=== PATIENT | male | born 1935 | race Caucasian/White ===

== ENCOUNTER → 2016-11-17 | Outpatient (CLI) | payer OTHER ==
[2016-11-17 14:00] LABS: ANION GAP 13 MEQ/L (8-16); BLOOD UREA NITROGEN 18 MG/DL (7-18); CALCIUM LEVEL 8.8 MG/DL (8.8-10.2); CARBON DIOXIDE LEVEL 25 MEQ/L (21-32); CHLORIDE LEVEL 101 MEQ/L (98-107); CREATININE FOR GFR 1.03 MG/DL (0.70-1.30); GLOMERULAR FILTRATION RATE > 60.0 (>35); GLUCOSE, FASTING 86 MG/DL (83-110); POTASSIUM SERUM 4.5 MEQ/L (3.5-5.1); SODIUM LEVEL 139 MEQ/L (136-145)
== END ==
LOC: M SMT 08:54
PROVIDERS: ATTEND Nurse Practitioner Women's Health
DX: R31.29 Other microscopic hematuria (principal); Z85.46 Personal history of malignant neoplasm of prostate
CPT/HCPCS: 36415; 80048; 84153; G0463

== ENCOUNTER → 2016-12-13 | Outpatient (CLI) | payer OTHER ==
[~2016-12-13] MED LIST: ISOVUE-370 76% 100ML VIAL (Q9967) As Ordered ONE
--- NOTE | 2016-12-13 13:44 | REP ---
CT abdomen pelvis multiphase imaging: Comparison is 12/18/2013. There is mild linear scarring in the visualized lung jay. The visualized lung jay are otherwise unremarkable. Scanning is performed for diaphragms to the pubic symphysis initially without IV contrast. After IV contrast. Biphasic scan is performed initially during the oral early portal venous phase of enhancement and later during the delayed equilibrium phase of enhancement. There are no renal or ureteral calculi. There is no hydronephrosis. There is a large parapelvic cyst at the lower pole left kidney measuring 3.6 cm in diameter. This was not present previously. There is an exophytic cyst at the lower pole of the right kidney measuring 2.5 cm, not significantly changed. There are other smaller parapelvic cysts bilaterally. No renal masses are identified. The adrenals are unremarkable. The hepatic parenchyma, gallbladder, pancreas and spleen are normal size and unremarkable on all phases of the study. The abdominal aorta is unremarkable except for occasional calcified atheroma. There is no retroperitoneal adenopathy. There is no bowel distension. There are multiple, at least four, contiguous midline ventral hernias containing omental fat but no bowel adjacent to one another, above the umbilicus. Pelvis: There is a surgical suture line in the cecum. The patient has an appendectomy. There is no pelvic adenopathy. There is no ascites. There are iridium seeds in the prostate, this is unchanged. The bladder is nondistended and cannot be assessed. There are no lytic, blastic or destructive skeletal changes are identified. There is advanced degenerative disc disease at L4-5 and L5 S1. Impression: There are no renal or ureteral calculi. There is no hydronephrosis. There are bilateral renal cysts, many are parapelvic, as described. The no renal masses are identified. The bladder is nondistended and cannot be further assessed at this time. There are multiple iridium seeds in the prostate. There is no retroperitoneal or pelvic or mesenteric adenopathy. There are no lytic, blastic or destructive skeletal changes. There are multiple contiguous fat-containing midline ventral hernias above the umbilicus. Signed by Allan Johnsno MD 12/13/2016 01:35 P
== END ==
LOC: M RAD 12:42
PROVIDERS: ATTEND Nurse Practitioner Women's Health
DX: R31.29 Other microscopic hematuria (principal)
CPT/HCPCS: 74178; Q9967

== ENCOUNTER 2018-10-11 09:30 | Emergency (ER) | payer MEDICARE, OTHER ==
[~2018-10-11] VITALS: Ht 172.7 cm; Wt 86.4 kg
[2018-10-11 10:02] LABS: BASO # 0.1 10^3/uL (0.0-0.2); BASO % 0.7 % (0.0-1.0); EOS # 0.1 10^3/uL (0.0-0.50); EOS % 1.7 % (0.0-3.0); HEMATOCRIT 45.6 % (42.0-52.0); HEMOGLOBIN 16.1 g/dl (13.5-17.5); LYMPH # 0.9 10^3/uL (1.5-4.5); MEAN CORPUSCULAR HEMOGLOBIN 32.8 pg (27.0-33.0); MEAN CORPUSCULAR HGB CONC 35.3 g/dl (32.0-36.5); MEAN CORPUSCULAR VOLUME 92.9 fl (80.0-96.0); MONO # 0.7 10^3/uL (0.0-0.8); MONO % 10.4 % (0.0-5.0); NEUTROPHILS # 5.1 10^3/uL (1.8-7.7); NEUTROPHILS % 74.1 % (36.0-66.0); PLATELET COUNT, AUTOMATED 296 10^3/uL (150-450); RED BLOOD COUNT 4.91 10^6/uL (4.30-6.10); WHITE BLOOD COUNT 6.9 10^3/uL (4.0-10.0)
[2018-10-11 10:13] LABS: INR 0.94; PROTHROMBIN TIME 12.7 SECONDS (12.1-14.4)
[2018-10-11 10:14] LABS: PARTIAL THROMBOPLASTIN TIME 24.9 SECONDS (25.4-37.6)
--- NOTE | 2018-10-11 10:19 | REP ---
Brain CT without contrast: History: Trauma. No comparison study. Findings: Digital preliminary engagement specialist radiograph is unremarkable. Bone window settings demonstrate an intact bony calvarium. No skull fractures seen. No significant scalp hematoma is appreciated. Visualized paranasal sinuses are clear. There is some mucosal thickening affecting the maxillary and ethmoid air cells. No intraorbital abnormality is seen. On soft tissue window settings, there is mild diffuse cerebral atrophy and small vessel change. There is no evidence of infarct or intracranial hemorrhage. Vascular calcification is noted affecting the distal vertebral and carotid arteries bilaterally. Impression: No acute intracranial abnormality. Vascular calcification and mild diffuse atrophy. No skull fracture or intracranial injury seen. Electronically Signed by Geronimo Mccall MD 10/11/2018 10:09 A
--- NOTE | 2018-10-11 10:22 | REP ---
CT study of the cervical spine without contrast: History: Trauma. Technique: Helical scanning is acquired and overlapping 2 mm high resolution axial images were generated and reviewed at bone and soft tissue window settings. Coronal and sagittal multiplanar re-formations images are generated. CT findings: There is no evidence of cervical spine element fracture. No skull base fracture is seen. Cervical vertebral body heights are preserved. Alignment is normal. Facet joints are normally aligned bilaterally at each cervical level on multiplanar re-formations images. There is no evidence of intraspinal or paraspinal hematoma. No extra vertebral abnormality is seen. There are degenerative spondylosis changes in the cervical spine at multiple levels. Degenerative disc disease most pronounced at C5-6 and C6-7. 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 Hypertrophic osteoarthritic facet disease is noted bilaterally in the mid cervical spine. Impression: Fairly advanced degenerative spondylosis changes. Otherwise negative CT study of the cervical spine without contrast. No fracture seen. Electronically Signed by Geronimo Mccall MD 10/11/2018 10:14 A
--- NOTE | 2018-10-11 10:28 | REP ---
Clinical: Trauma . Comparison: None . Technique: PA and lateral. Findings: The mediastinum and cardiac silhouette are normal. The lung jay are clear and without acute consolidation, effusion, or pneumothorax. The skeletal structures are intact and normal. Impression: 1. No acute cardiopulmonary process. Electronically Signed by Ted Serna MD 10/11/2018 10:20 A
[2018-10-11] MEDS ORDERED: LEVO50TA5 PO (10:42)
[2018-10-11] MEDS ORDERED: LOSA50TA5 PO (10:42)
[2018-10-11] MEDS ORDERED: AMLO10TA5 PO (10:42)
[2018-10-11 10:47] LABS: BLOOD UREA NITROGEN 16 MG/DL (7-18); CALCIUM LEVEL 8.9 MG/DL (8.8-10.2); CARBON DIOXIDE LEVEL 27 MEQ/L (21-32); CHLORIDE LEVEL 100 MEQ/L (98-107); CPK CREATINE PHOSPHOKINASE 138 U/L (39-308); CREATININE FOR GFR 1.09 MG/DL (0.70-1.30); GLOMERULAR FILTRATION RATE > 60.0 (>35); GLUCOSE, FASTING 109 MG/DL (70-100); MAGNESIUM LEVEL 1.8 MG/DL (1.8-2.4); MB/CK RELATIVE INDEX 1.88 (< OR =4); POTASSIUM SERUM 3.7 MEQ/L (3.5-5.1); SODIUM LEVEL 135 MEQ/L (136-145); TROPONIN I < 0.02 NG/ML (< 0.10)
[2018-10-11] MEDS ORDERED: VITA10002 PO (10:52)
[2018-10-11] MEDS ORDERED: diltiaZEM **CD** 180 MG CAP PO ONE (11:15)
[2018-10-11 11:24] VITALS: BP 151/86
[2018-10-11] MEDS ORDERED: CARD180C4 PO (11:27)
[2018-10-11 11:34] VITALS: BP 147/81
--- NOTE | 2018-10-12 07:23 | ECGEPIP ---
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
== END 2018-10-11 11:43 | disposition home or self-care (01) ==
LOC: M ED 09:30
DX: I48.91 Unspecified atrial fibrillation (principal); S09.90XA Unspecified injury of head, initial encounter; W00.0XXA Fall on same level due to ice and snow, initial encounter; Y92.89 Other specified places as the place of occurrence of the external cause; I10 Essential (primary) hypertension; Z79.899 Other long term (current) drug therapy; Z79.890 Hormone replacement therapy

== ENCOUNTER 2019-02-23 05:09 | Inpatient (IN) | payer MEDICARE ==
[~2019-02-23] VITALS: Ht 170.2 cm; Wt 78.3 kg
[~2019-02-23 05:09] MED LIST changes: +AMLO10TA5 PO; +CARD180C4 PO; +CYAN100049 PO; -ISOVUE-370 76% 100ML VIAL (Q9967) As Ordered ONE; +LEVO50TA5 PO; +LOSA50TA5 PO
[2019-02-23] MEDS ORDERED: PROT1TAB2 PO (05:19)
[2019-02-23] MEDS ORDERED: PACE200T PO (05:19)
[2019-02-23] MEDS ORDERED: XARE20TA PO (05:19)
[2019-02-23] MEDS ORDERED: ONDANSETRON 4MG/2ML VIAL (J2405) IV ONE (05:45)
[2019-02-23] MEDS ORDERED: MORPHINE 4 MG/ML 1ML VIAL/SYRINGE (J2270) IV ONE ×2 (05:45→06:45)
[2019-02-23 05:53] LABS: BASO # 0.1 10^3/uL (0.0-0.2); BASO % 0.5 % (0.0-1.0); EOS # 0.1 10^3/uL (0.0-0.50); EOS % 0.8 % (0.0-3.0); HEMATOCRIT 42.5 % (42.0-52.0); HEMOGLOBIN 14.8 g/dl (13.5-17.5); LYMPH # 0.8 10^3/uL (1.5-4.5); LYMPH % 6.1 % (24.0-44.0); MEAN CORPUSCULAR HEMOGLOBIN 33.2 pg (27.0-33.0); MEAN CORPUSCULAR HGB CONC 34.8 g/dl (32.0-36.5); MEAN CORPUSCULAR VOLUME 95.3 fl (80.0-96.0); MONO # 0.7 10^3/uL (0.0-0.8); MONO % 5.6 % (0.0-5.0); NEUTROPHILS # 11.4 10^3/uL (1.8-7.7); NEUTROPHILS % 86.5 % (36.0-66.0); PLATELET COUNT, AUTOMATED 315 10^3/uL (150-450); RED BLOOD COUNT 4.46 10^6/uL (4.30-6.10); WHITE BLOOD COUNT 13.2 10^3/uL (4.0-10.0)
[2019-02-23] MEDS ORDERED: NS 1,000 ML IV ONE (06:00)
[2019-02-23 06:21] LABS: BILIRUBIN,DIRECT 0.2 MG/DL (0.0-0.2); BILIRUBIN,TOTAL 0.7 MG/DL (0.2-1.0); CALCIUM LEVEL 9.6 MG/DL (8.8-10.2); CREATININE FOR GFR 1.55 MG/DL (0.70-1.30); GLOMERULAR FILTRATION RATE 45.7 (>35); POTASSIUM SERUM 3.4 MEQ/L (3.5-5.1); TOTAL PROTEIN 7.5 GM/DL (6.4-8.2)
[2019-02-23] MEDS: GASTROGRAFIN SOLUTION 30ML PO SCH ×2 (06:21→07:07)
[2019-02-23] MEDS ORDERED: ISOVUE-370 76% 100ML VIAL (Q9967) As Ordered ONE (07:40)
[2019-02-23] MEDS ORDERED: PIPERACILLIN/TAZOBACTAM SOD 3.375 GM in D5W MINI-BAG PLUS 50 ML IV ONE (08:45)
[2019-02-23] MEDS ORDERED: DILUENT IV ONE (08:45)
[2019-02-23] MEDS ORDERED: NS IV ONE (08:45)
--- NOTE | 2019-02-23 09:25 | REP ---
CT ABDOMEN AND PELVIS WITH ORAL AND IV CONTRAST: TECHNIQUE: Axial contrast enhanced images from the lung bases to the pubic symphysis using 100 mL Isovue 370 intravenous contrast material with multiplanar reformations. Visualized lung bases demonstrate fibrotic changes. The liver, spleen, and adrenals are unremarkable. Pancreas demonstrates a cystic structure of the body of the pancreas measuring 1.3 cm in diameter. This should be evaluated with a followup MRI. There is an exophytic cyst of the lower pole of the right kidney 2.9 cm in diameter. Two pelvic cysts are seen in the left kidney, the larger 3.4 cm. There is atherosclerotic calcification of the abdominal aorta without aneurysm. There is no adenopathy. There is no free air or free fluid. There is a midline anterior abdominal wall hernia just above the umbilicus containing fat. There is evidence of small bowel obstruction with dilatation of multiple proximal small bowel loops. There is a transition point in the right mid abdomen anteriorly. Distal small bowel loops and colon are collapsed. No pelvic mass is seen. Multiple metallic densities are seen in the region of the prostate. Urinary bladder is not well distended and not well evaluated. IMPRESSION: Evidence for small bowel obstruction which is fairly high grade with the transition point in the right mid abdomen anteriorly. No free air or free fluid. Small supraumbilical midline abdominal wall hernia contains fat. There is a cystic structure in the body of the pancreas 1.3 cm in diameter. Recommend evaluation with followup MRI of the pancreas with and without contrast. Electronically Signed by Allan Hernandez MD 02/23/2019 07:17 P
[2019-02-23 11:13] LABS: CALCIUM LEVEL 8.2 MG/DL (8.8-10.2); CREATININE FOR GFR 1.34 MG/DL (0.70-1.30); GLOMERULAR FILTRATION RATE 54.1 (>35); POTASSIUM SERUM 3.6 MEQ/L (3.5-5.1)
[2019-02-23] MEDS ORDERED: DILT180C28 PO (12:42)
[2019-02-23] MEDS ORDERED: AMLO5TAB6 PO (12:43)
[2019-02-23] MEDS ORDERED: KETOROLAC 30 MG/ML VIAL (J1885) IV PRN (12:45)
--- NOTE | 2019-02-23 13:18 | HPE ---
DATE OF ADMISSION: 02/23/2019 ADMISSION DIAGNOSIS: Small bowel obstruction secondary to adhesions. HISTORY OF PRESENT ILLNESS: The patient is a pleasant 84-year-old man who presented to the emergency department at approximately 5 o'clock in the morning on the 23 of February complaining of abdominal pain. He reported that he had been awakened at about 2 o'clock in the morning by severe pain. It was difficult to localize and fairly diffuse. He had some nausea but reported some dry heaves without any significant emesis. In the emergency department he was found to have some abdominal discomfort. He received analgesics as needed. He was noted to have a small hernia bulge above the level of the umbilicus. A CT scan of the abdomen and pelvis was obtained. This revealed some air and fluid-filled dilated proximal small bowel with some distal decompressed small bowel and a decompressed colon. The radiologist felt the findings were consistent with a small bowel obstruction. The patient has had a previous appendectomy several years ago. He has had several operations for an umbilical or incisional hernia along the midline. He reports having had an operation back in 2013 for a bowel obstruction. This was done at [facility]. I was consulted and the patient is now admitted for management of his apparent obstruction. ALLERGIES: The patient denies any known drug allergies. MEDICATIONS: Patient is on several cardiac medications and his list of meds includes: - diltiazem 180 mg capsule one by mouth daily - levothyroxine 50 mcg by mouth daily - losartan and hydrochlorothiazide 50/12.5 mg one tablet daily - amlodipine 10 mg by mouth daily - cyanocobalamin 1000 mcg by mouth every morning - amiodarone 200 mg by mouth daily - Protonix 40 mg by mouth daily - Xarelto 20 mg p.o. daily MEDICAL HISTORY: Is significant for history of atrial fibrillation which was apparently diagnosed this past winter when he had presented to the hospital emergency room for an unrelated matter. 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 He has a history of prostate cancer treated by radioactive seed implantation back in about 2007. He has a history of hypertension and hyperlipidemia. He denies any history of myocardial infarction, seizure or stroke. SURGICAL HISTORY: Is significant for his appendectomy. He has had several operations for his umbilical hernia and has undergone a previous operation for a bowel obstruction. SOCIAL HISTORY: The patient is . He is apparently accompanied by his daughter to the emergency department. He is a former smoker. He denies any alcohol use. REVIEW OF SYSTEMS: Reveals no history of seizure, stroke or TIA. He denies any chest pains or palpitations. He has no cough, wheezing or sputum production. He denies any history of DVT or pulmonary embolus. He has had prostate cancer treated. He denies any dysuria or hematuria. He has had no evidence for GI bleeding. He has not had any recent prodromal intestinal symptoms. He denies any new bone or joint symptoms. PHYSICAL EXAM: Shows a pleasant elderly man lying quietly on the hospital stretcher. He is alert and oriented. Skin is warm and dry. His face and upper extremities are heavily tanned. Sclerae are anicteric. Mucous membranes are moist to slightly tacky. The neck is supple without mass. There is no cervical bruit. Heart exam shows what appears to be a regular rhythm at about 60. The lungs are clear to auscultation. The abdomen shows midline scar beginning above the umbilicus and extending inferiorly. There is another paramedian scar in the right lower quadrant. He has about a 3-4 cm fatty bulge along the midline consistent with some incarcerated fatty herniation but this is nontender. He does have some bowel sounds present in all four quadrants though these may be slightly tinkly in areas. There is no definite tympany to percussion. There is no tenderness to percussion. The abdomen is soft and there is no definite mass appreciated. Extremities show no peripheral edema. He has palpable dorsalis pedis and radial pulses bilaterally. Laboratory studies include a CBC that shows a white count of 13, hemoglobin of 15, hematocrit of 42 and a platelet count of 315,000. His differential count showed 86% neutrophils, 6% lymphocytes and 6% monocytes. His chemistry profile showed a sodium of 135, potassium 3.4, chloride 97, CO2 of 26, BUN of 22, creatinine 1.55 and a glucose of 133. An initial lactic acid of 2.4 was 1.3 on followup. His liver function tests are all normal and his total protein and albumin were 7.5 and 4.0. Lipase is normal at 73. CT scan images I reviewed personally. He does have some dilated proximal small bowel down to the distal small bowel in the right lower quadrant where it is very small and decompressed and the entire colon is decompressed. He has some metallic items in the prostate consistent with previous radiation seed placement. There appear to be some clips or gregg in the area of his cecum. He does have a small hernia noted along the midline which appears to contain only some fat. IMPRESSION: 1. Small bowel obstruction secondary to adhesions. 2. Atrial fibrillation on anticoagulation. 3. Hypothyroidism. 4. Hyperlipidemia. PLAN: The patient will be admitted for management of his bowel obstruction. I have recommended we place an nasogastric (NG) tube to decompress his stomach and perhaps the proximal small bowel and to prevent vomiting. He will receive IV fluids and we will monitor his urine output. He will remain on some IV Protonix to decrease his gastric secretions. He received a dose of antibiotics in the emergency room (ER) but I do not believe this needs to be continued as there is no evidence for an infection at this time. I will hold his Xarelto. We will give his essential cardiac medications orally and clamp his NG tube periodically as needed. Hopefully his obstruction will resolve readily with nonoperative management. If he shows no benefit to over the next 48 hours then I will discuss with him surgical intervention. The patient appears to understand the plan and is agreeable.
[2019-02-23 14:00] VITALS: BP 145/64
[2019-02-23] MEDS: LR 1,000 ML IV SCH ×3 (15:28→23:40)
[2019-02-23 22:00] VITALS: BP 141/69
[2019-02-24 02:00] VITALS: BP 144/75
[2019-02-24] MEDS: ONDANSETRON 4MG/2ML VIAL (J2405) IV PRN ×2 (04:57→21:33)
[2019-02-24 06:00] VITALS: BP 155/72
[2019-02-24 06:37] LABS: BASO % 0.4 % (0.0-1.0); EOS % 0.7 % (0.0-3.0); HEMATOCRIT 36.1 % (42.0-52.0); LYMPH # 0.4 10^3/uL (1.5-4.5); LYMPH % 6.8 % (24.0-44.0); MEAN CORPUSCULAR HEMOGLOBIN 32.5 pg (27.0-33.0); MEAN CORPUSCULAR HGB CONC 34.1 g/dl (32.0-36.5); MEAN CORPUSCULAR VOLUME 95.3 fl (80.0-96.0); MONO # 0.6 10^3/uL (0.0-0.8); MONO % 10.7 % (0.0-5.0); NEUTROPHILS # 4.6 10^3/uL (1.8-7.7); NEUTROPHILS % 81.2 % (36.0-66.0); PLATELET COUNT, AUTOMATED 237 10^3/uL (150-450); RED BLOOD COUNT 3.79 10^6/uL (4.30-6.10); WHITE BLOOD COUNT 5.7 10^3/uL (4.0-10.0)
[2019-02-24 06:48] LABS: HEMOGLOBIN 12.3 g/dl (13.5-17.5)
[2019-02-24 06:56] LABS: BLOOD UREA NITROGEN 18 MG/DL (7-18); CALCIUM LEVEL 8.4 MG/DL (8.8-10.2); CARBON DIOXIDE LEVEL 29 MEQ/L (21-32); CHLORIDE LEVEL 105 MEQ/L (98-107); CREATININE FOR GFR 1.15 MG/DL (0.70-1.30); GLOMERULAR FILTRATION RATE > 60.0 (>35); GLUCOSE, FASTING 104 MG/DL (70-100); POTASSIUM SERUM 3.5 MEQ/L (3.5-5.1); SODIUM LEVEL 139 MEQ/L (136-145)
[2019-02-24] MEDS: PANTOPRAZOLE 40MG INJ (PROTONIX) (C9113) IV SCH (08:50)
[2019-02-24 10:00] VITALS: BP 155/72
[2019-02-24] MEDS: LR 1,000 ML IV SCH (11:56)
[2019-02-24] MEDS: amLODIPine 5 MG TAB PO SCH (13:18)
[2019-02-24] MEDS: diltiaZEM **CD** 180 MG CAP PO SCH (13:18)
[2019-02-24] MEDS: AMIODARONE 200 MG TAB (PACERONE) PO SCH (13:18)
[2019-02-24 14:00] VITALS: BP_SYST 164; BP_SYST 168; BP_DIAS 72; BP_DIAS 79
[2019-02-24 18:00] VITALS: BP 160/70
[2019-02-24 22:00] VITALS: BP 148/67
[2019-02-25] VITALS (7 sets, daily range): BP systolic 124–177; BP diastolic 61–81
[2019-02-25] MEDS: LEVOTHYROXINE 50MCG TABLET (0.05MG) PO SCH (05:25)
[2019-02-25] MEDS: MORPHINE 4 MG/ML 1ML VIAL/SYRINGE (J2270) IV PRN (05:25)
[2019-02-25 06:41] LABS: BLOOD UREA NITROGEN 18 MG/DL (7-18); CALCIUM LEVEL 8.2 MG/DL (8.8-10.2); CARBON DIOXIDE LEVEL 28 MEQ/L (21-32); CHLORIDE LEVEL 104 MEQ/L (98-107); CREATININE FOR GFR 0.97 MG/DL (0.70-1.30); GLOMERULAR FILTRATION RATE > 60.0 (>35); GLUCOSE, FASTING 82 MG/DL (70-100); POTASSIUM SERUM 3.4 MEQ/L (3.5-5.1); SODIUM LEVEL 138 MEQ/L (136-145)
--- NOTE | 2019-02-25 07:28 | REP ---
KUB ABDOMEN AND PELVIS: Two KUB films of abdomen and pelvis performed. There is persistent moderate dilatation of proximal small bowel compatible with small bowel obstruction as identified on CT 02/23/2019. Nasogastric tube is seen in the upper abdomen. Scattered vascular calcifications are present. Multiple metallic densities are seen in the region of the prostate. A small amount of excreted contrast is seen in the bladder. IMPRESSION: Persistent moderate small bowel dilatation compatible with small bowel obstruction. There does appear to be mild right colonic air. Electronically Signed by Allan Hernandez MD 02/25/2019 08:31 A
[2019-02-25] MEDS: LR 1,000 ML IV SCH ×2 (07:38→20:34)
[2019-02-25] MEDS: PANTOPRAZOLE 40MG INJ (PROTONIX) (C9113) IV SCH (08:26)
[2019-02-25] MEDS: amLODIPine 5 MG TAB PO SCH (08:26)
--- NOTE | 2019-02-25 09:51 | IPN ---
DATE: 02/24/2019 HISTORY: The patient was admitted yesterday with a small bowel obstruction. An NG tube was placed. He had 1800 mL out the NG yesterday. Today he reports that he still has some abdominal fullness and mild discomfort, but it is not severe. He reports he has had no flatus or bowel movement. Vital signs show that he has been afebrile since admission with pulse in the 60s and a normal blood pressure. Intake and output show that yesterday he had 3500 in with 2000 out. This morning, he had 275 mL of urine recorded and only 170 from the NG tube. PHYSICAL EXAMINATION: The patient is alert and comfortable. His NG tube is in place and has a small amount of lightly greenish turbid fluid in the canister. Heart exam shows a regular rhythm and the lungs are clear. The abdomen is mildly full. He does have some bowel sounds present. Palpation reveals some mild tenderness in the right midabdomen, but the abdomen is generally soft throughout. LABORATORY STUDIES: Today show a white count of 6 with a hemoglobin of 12, hematocrit 36 and a platelet count of 237,000. Differential count shows 81% neutrophils, 11% monocytes and 7% lymphocytes. Chemistry profile shows normal electrolytes with a BUN of 18, creatinine 1.15 and a glucose of 104. He had a CT that reveals some persistent mildly distended air-filled loops of small bowel in the mid and upper abdomen, particularly on the left. IMPRESSION: Small bowel obstruction secondary to adhesions. PLAN: We will continue the patient's NG tube and IV hydration. He has not required any pain medication and had some Zofran this morning. His NG output seems to have diminished and we will monitor this. He is not having any flatus or BM. I will continue to hold his Xarelto, but resume some of his medications for his atrial fibrillation. Hopefully, he will resolve this small-bowel obstruction without operative intervention in the next 24-48 hours.
[2019-02-25] MEDS: AMIODARONE 200 MG TAB (PACERONE) PO SCH (12:21)
[2019-02-25] MEDS: diltiaZEM **CD** 180 MG CAP PO SCH (12:21)
--- NOTE | 2019-02-25 13:17 | IPN ---
DATE OF SERVICE: 02/25/2019 HISTORY: The patient was admitted two days ago with abdominal pain and CT evidence of a small bowel obstruction. He has a nasogastric tube in place which has been continued to low intermittent suction. This morning, he reports that he had required a dose of morphine overnight and is having still some soreness in the abdomen in the left upper quadrant and right midabdomen in particular. Vital signs show that he has been afebrile over the past 24 hours with a pulse in the 60s and a normal blood pressure. Intake and output shows that yesterday he had 2300 in with 1300 recorded out. The NG tube had 470 recorded for output. PHYSICAL EXAMINATION: The patient is lying quietly on the hospital bed. He is alert and oriented. His NG tube is clamped now as he recently received one of his cardiac medications. Heart exam shows a regular rhythm and the lungs are clear. The abdomen is perhaps mildly full. He has some bowel sounds present, though these are not active. Palpation reveals the abdomen to be soft, though he does have some tenderness around his supraumbilical hernia and in the right midabdomen and left upper quadrant. This tenderness is fairly mild, but definite. LABORATORY STUDIES: Show a medical profile showing a sodium of 138, potassium 3.4, chloride 104, CO2 of 28, BUN of 18, creatinine 0.97 and a glucose of 80. IMPRESSION: The patient continues with some abdominal soreness and some mild tenderness to palpation. He denies any flatus or bowel movement. His NG tube output seems to be decreased. Overall, he would seem to still have some degree of obstruction. PLAN: A repeat KUB will be obtained this morning to reassess the bowel loops. If he does not improve soon, then we may need to consider surgical intervention.
--- NOTE | 2019-02-25 17:46 | REP ---
KUB: Two views. History: Followup small bowel obstruction. Comparison study: February 24, 2019. Findings: An NG tube enters left upper quadrant of the abdomen. Vascular calcification and prostate seeds are noted in the pelvis. Moderately dilated air filled small bowel loops fill the central abdomen. There is some gas in the right colon. Gas pattern is similar to yesterday's radiograph. IMPRESSION: Persistent moderate small bowel dilation. Some right colon gas is again visible. Electronically Signed by Geronimo Mccall MD 02/26/2019 08:31 A
[2019-02-25] MEDS: ONDANSETRON 4MG/2ML VIAL (J2405) IV PRN (20:33)
[2019-02-26] VITALS (7 sets, daily range): BP systolic 130–172; BP diastolic 63–79
[2019-02-26] MEDS: LEVOTHYROXINE 50MCG TABLET (0.05MG) PO SCH (06:10)
[2019-02-26 06:15] LABS: BASO % 0.5 % (0.0-1.0); HEMATOCRIT 37.7 % (42.0-52.0); HEMOGLOBIN 12.8 g/dl (13.5-17.5); LYMPH # 0.4 10^3/uL (1.5-4.5); LYMPH % 10.4 % (24.0-44.0); MEAN CORPUSCULAR HEMOGLOBIN 32.3 pg (27.0-33.0); MEAN CORPUSCULAR VOLUME 95.2 fl (80.0-96.0); MONO # 0.6 10^3/uL (0.0-0.8); MONO % 15.6 % (0.0-5.0); NEUTROPHILS # 2.9 10^3/uL (1.8-7.7); NEUTROPHILS % 72.3 % (36.0-66.0); PLATELET COUNT, AUTOMATED 248 10^3/uL (150-450); RED BLOOD COUNT 3.96 10^6/uL (4.30-6.10); WHITE BLOOD COUNT 4.1 10^3/uL (4.0-10.0)
[2019-02-26 06:38] LABS: BLOOD UREA NITROGEN 18 MG/DL (7-18); CARBON DIOXIDE LEVEL 27 MEQ/L (21-32); CHLORIDE LEVEL 103 MEQ/L (98-107); GLOMERULAR FILTRATION RATE > 60.0 (>35); GLUCOSE, FASTING 75 MG/DL (70-100); POTASSIUM SERUM 3.5 MEQ/L (3.5-5.1); SODIUM LEVEL 138 MEQ/L (136-145)
[2019-02-26] MEDS: PANTOPRAZOLE 40MG INJ (PROTONIX) (C9113) IV SCH (08:52)
[2019-02-26] MEDS: amLODIPine 5 MG TAB PO SCH (08:52)
[2019-02-26] MEDS: LR 1,000 ML IV SCH ×2 (08:56→21:00)
[2019-02-26] MEDS: diltiaZEM **CD** 180 MG CAP PO SCH (12:26)
[2019-02-26] MEDS: AMIODARONE 200 MG TAB (PACERONE) PO SCH (12:26)
[2019-02-26] MEDS: MORPHINE 4 MG/ML 1ML VIAL/SYRINGE (J2270) IV PRN (21:32)
[2019-02-27] VITALS (10 sets, daily range): BP systolic 109–165; BP diastolic 56–74
[2019-02-27] MEDS: LEVOTHYROXINE 50MCG TABLET (0.05MG) PO SCH (05:38)
[2019-02-27 06:06] LABS: BASO % 0.3 % (0.0-1.0); EOS # 0.1 10^3/uL (0.0-0.50); EOS % 1.2 % (0.0-3.0); HEMATOCRIT 35.7 % (42.0-52.0); LYMPH # 0.6 10^3/uL (1.5-4.5); LYMPH % 10.8 % (24.0-44.0); MEAN CORPUSCULAR HEMOGLOBIN 31.9 pg (27.0-33.0); MEAN CORPUSCULAR HGB CONC 33.6 g/dl (32.0-36.5); MEAN CORPUSCULAR VOLUME 94.9 fl (80.0-96.0); MONO # 0.9 10^3/uL (0.0-0.8); MONO % 15.5 % (0.0-5.0); NEUTROPHILS # 4.2 10^3/uL (1.8-7.7); NEUTROPHILS % 71.9 % (36.0-66.0); PLATELET COUNT, AUTOMATED 238 10^3/uL (150-450); RED BLOOD COUNT 3.76 10^6/uL (4.30-6.10); WHITE BLOOD COUNT 5.9 10^3/uL (4.0-10.0)
[2019-02-27 06:34] LABS: ALBUMIN 2.3 GM/DL (3.2-5.2); ALT/SGPT 27 U/L (12-78); BILIRUBIN,TOTAL 0.9 MG/DL (0.2-1.0); BLOOD UREA NITROGEN 16 MG/DL (7-18); CALCIUM LEVEL 8.2 MG/DL (8.8-10.2); CARBON DIOXIDE LEVEL 28 MEQ/L (21-32); CHLORIDE LEVEL 103 MEQ/L (98-107); CREATININE FOR GFR 0.81 MG/DL (0.70-1.30); GLOMERULAR FILTRATION RATE > 60.0 (>35); GLUCOSE, FASTING 75 MG/DL (70-100); POTASSIUM SERUM 3.6 MEQ/L (3.5-5.1); SODIUM LEVEL 138 MEQ/L (136-145); TOTAL PROTEIN 5.6 GM/DL (6.4-8.2)
--- NOTE | 2019-02-27 07:51 | REP ---
Supine abdomen single AP view: Comparison is 02/25/2019. There is diffuse small bowel gaseous distension compatible with small bowel obstruction versus ileus. There is gas in mildly distended colon, unchanged. The radium seed implants are again noted in the prostate, unchanged. Skeletal structures are unremarkable. There are calcifications in the pelvis, likely phleboliths, unchanged. Impression: Persisting small bowel distension compatible with obstruction versus ileus. Electronically Signed by Allan Johnson MD 02/27/2019 07:43 A
[2019-02-27] MEDS: LR 1,000 ML IV SCH ×3 (08:10→21:46)
[2019-02-27] MEDS: PANTOPRAZOLE 40MG INJ (PROTONIX) (C9113) IV SCH (08:11)
[2019-02-27] MEDS: amLODIPine 5 MG TAB PO SCH (08:11)
--- NOTE | 2019-02-27 09:55 | IPN ---
DATE: 02/26/2019 HISTORY: The patient was admitted on February [address] findings consistent with a small bowel obstruction. He has been observed with a nasogastric tube in place since admission. He reports that he still has passed no flatus or stool and has been having some upper mid abdominal discomfort. Vital signs show that he has been afebrile over the past 24 hours with a pulse of about 60 and a stable blood pressure. Intake and output shows that yesterday he had 1800 in with 800 out, 400 if this was NG output. PHYSICAL EXAMINATION: Shows that the patient is lying quietly on the hospital bed. He is alert and oriented. Heart and lung exams are unremarkable. The abdomen is perhaps mildly protuberant. The abdomen is generally soft. He does have a few bowel sounds present. He has some tenderness particularly in the mid abdomen and in the right mid to lower abdomen. LABORATORY STUDIES: Show a white count of 4, hemoglobin of 13, hematocrit of 38 and a platelet count of 248,000. Differential count shows 72% neutrophils, 10% lymphocytes and 16% monocytes. Chemistry profile is normal. IMPRESSION: The patient has signs of continuing small bowel obstruction. This is likely secondary to adhesions from prior surgery. PLAN: Will try to make plans for the patient to undergo surgery tomorrow. I am due to [facility] for a continuing education conference and I will see if one of my partners would be willing to intervene for this patient. We will recheck his labs and obtain a new KUB in the morning.
[2019-02-27] MEDS: AMIODARONE 200 MG TAB (PACERONE) PO SCH (12:26)
[2019-02-27] MEDS: diltiaZEM **CD** 180 MG CAP PO SCH (12:26)
--- NOTE | 2019-02-27 12:50 | IPNPDOC ---
Text Note Date of Service The patient was seen on 02/27/19. NOTE With some certainly consider request of Dr. Moore who is admitted patient for small bowel obstruction. He has been in the hospital since 02/22/2019 with sudden onset of severe abdominal discomfort, bloating and vomiting consistent with bowel obstruction. He has had previous bowel obstructions before in 5 years ago needed abdominal exploration, lysis of adhesion to resolve the obstruction. He has not had any recurrence since then until now. He is getting admitted patient continues to have abdominal distention and not passing any flatus. X-ray imaging shows continued bowel obstruction appearance with some air in the right colon. Dr. Moore is available today now that is to take over care for the patient. Since the obstruction has not resolved. He has been scheduled for abdominal exploration. On examination, he has a nasogastric tube in place. He continues to have moderate distention of his bowels, tympanitic to percussion. He has a midline incision extending from the epigastric area to below the umbilicus with a small noticeable incisional hernia above the umbilicus. This appears to be reducible. Nontender to palpation. His abdomen remains nontender on palpation throughout. No rebound or guarding. Hypoactive bowel sounds. Impression and plan Small bowel obstruction most likely secondary to adhesions. Patient scheduled for surgery today. I discussed with him the operative plan. We will start with diagnostic laparoscopy and see if we are able to lyse his adhesions and free up the bowel to release the obstruction this way. Otherwise he may need of open abdominal exploration by the same midline incision.I discussed with the patient the details of the proposed procedure, the benefits of performing the procedure, the most common risks on doing the procedure. This may include risks of vascular and bowel injury, anastomotic the since, abscess or space organ infection, hernia formation. I have given him a chance to ask questions, voice out concerns. Patient has agreed to proceed. VS,Fishbone, I+O VS, Fishbone, I+O Laboratory Tests 02/27/19 05:31 Red Blood Count 3.76 L, Mean Corpuscular Volume 94.9, Mean Corpuscular Hemoglobin 31.9, Mean Corpuscular Hemoglobin Concent 33.6, Red Cell Distribution Width 13.4, Neutrophils (%) (Auto) 71.9 H, Lymphocytes (%) (Auto) 10.8 L, Monocytes (%) (Auto) 15.5 H, Eosinophils (%) (Auto) 1.2, Basophils (%) (Auto) 0.3, Neutrophils # (Auto) 4.2, Lymphocytes # (Auto) 0.6 L, Monocytes # (Auto) 0.9 H, Eosinophils # (Auto) 0.1, Basophils # (Auto) 0.0, Calcium Level 8.2 L, Aspartate Amino Transf (AST/SGOT) 19, Alanine Aminotransferase (ALT/SGPT) 27, Alkaline Phosphatase 52, Total Bilirubin 0.9, Total Protein 5.6 L, Albumin 2.3 L Vital Signs Date Time Temp Pulse Resp B/P (MAP) Pulse Ox O2 Delivery O2 Flow Rate FiO2 02/27/19 12:26 72 140/62 02/27/19 10:00 97.6 18 96 02/23/19 13:30 Room Air I&O- Last 24 Hours up to 6 AM 02/27/19 06:00 Intake Total 1275 ml Output Total 1100 ml Balance 175 ml MARTY BARBA MD Feb 27, 2019 12:50
[2019-02-27] MEDS ORDERED: LIDOCAINE 1% SDV INJ 30 ML VIAL As Ordered ONE (13:02)
[2019-02-27] MEDS ORDERED: BUPIVACAINE HCL 0.25% 30 ML VIAL As Ordered ONE (13:02)
[2019-02-27] MEDS ORDERED: fentaNYL 250 MCG/5 ML INJECTION (J3010) As Ordered ONE (13:04)
[2019-02-27] MEDS ORDERED: LIDOCAINE 2% INJ 100 MG/5 ML SDV (FOR ANES.) As Ordered ONE (13:05)
[2019-02-27] MEDS ORDERED: PROPOFOL 200 MG/20 ML VIAL As Ordered ONE (13:05)
[2019-02-27] MEDS ORDERED: ROCURONIUM BROMIDE 50 MG/5 ML VIAL As Ordered ONE ×2 (13:05→14:50)
[2019-02-27] MEDS ORDERED: ONDANSETRON 4MG/2ML VIAL (J2405) As Ordered ONE (13:08)
[2019-02-27] MEDS ORDERED: dexameTHASONE 4 MG/ML 1ML VIAL (J1100) As Ordered ONE (13:08)
[2019-02-27] MEDS ORDERED: MIDAZOLAM INJ 2 MG/2 ML VIAL (J2250) As Ordered ONE (13:10)
[2019-02-27] MEDS ORDERED: UNASYN 1.5 GM VIAL As Ordered ONE (13:31)
[2019-02-27] MEDS ORDERED: ePHEDrine SULFATE 25 MG/5 ML(5MG/ML) SYRINGE As Ordered ONE (14:25)
[2019-02-27] MEDS ORDERED: ACETAMINOPHEN 1000MG 100ML IV BTL (OFIRMEV) (J0131 PER 10MG) As Ordered ONE (15:11)
[2019-02-27] MEDS ORDERED: SUGAMMADEX SODIUM 500 MG/5 ML VIAL (BRIDION) As Ordered ONE (15:17)
[2019-02-27] MEDS ORDERED: ONDANSETRON 4MG/2ML VIAL (J2405) IV PRN (16:15)
[2019-02-27] MEDS ORDERED: LR 1,000 ML IV SCH (16:15)
[2019-02-27] MEDS ORDERED: fentaNYL 100 MCG/2 ML INJECTION (J3010) IV PRN (16:15)
[2019-02-27] MEDS ORDERED: MORPHINE 10 MG/ML 1ML VIAL (J2270) IV PRN (16:15)
[2019-02-27] MEDS ORDERED: NORCO, ANEXSIA 5/325MG TABLET (HYDROcodone/ACETAMINOPHEN) PO PRN (16:15)
[2019-02-27] MEDS: MORPHINE 4 MG/ML 1ML VIAL/SYRINGE (J2270) IV PRN (17:26)
[2019-02-27] MEDS: ALVIMOPAN 12 MG CAPSULE (ENTEREG) PO SCH (21:46)
[2019-02-28 02:00] VITALS: BP 131/61
[2019-02-28] MEDS: LEVOTHYROXINE 50MCG TABLET (0.05MG) PO SCH (05:33)
[2019-02-28 06:00] VITALS: BP 118/55
[2019-02-28 06:37] LABS: BASO % 0.1 % (0.0-1.0); HEMATOCRIT 35.8 % (42.0-52.0); HEMOGLOBIN 11.8 g/dl (13.5-17.5); LYMPH # 0.3 10^3/uL (1.5-4.5); LYMPH % 2.7 % (24.0-44.0); MEAN CORPUSCULAR HEMOGLOBIN 31.8 pg (27.0-33.0); MEAN CORPUSCULAR VOLUME 96.5 fl (80.0-96.0); MONO # 0.5 10^3/uL (0.0-0.8); MONO % 5.1 % (0.0-5.0); NEUTROPHILS # 8.9 10^3/uL (1.8-7.7); NEUTROPHILS % 91.8 % (36.0-66.0); PLATELET COUNT, AUTOMATED 235 10^3/uL (150-450); RED BLOOD COUNT 3.71 10^6/uL (4.30-6.10); WHITE BLOOD COUNT 9.7 10^3/uL (4.0-10.0)
[2019-02-28 06:47] LABS: BLOOD UREA NITROGEN 19 MG/DL (7-18); CALCIUM LEVEL 7.8 MG/DL (8.8-10.2); CARBON DIOXIDE LEVEL 24 MEQ/L (21-32); CHLORIDE LEVEL 103 MEQ/L (98-107); CREATININE FOR GFR 0.92 MG/DL (0.70-1.30); GLOMERULAR FILTRATION RATE > 60.0 (>35); GLUCOSE, FASTING 124 MG/DL (70-100); POTASSIUM SERUM 3.9 MEQ/L (3.5-5.1); SODIUM LEVEL 138 MEQ/L (136-145)
--- NOTE | 2019-02-28 07:48 | ECGEPIP ---
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
[2019-02-28] MEDS: amLODIPine 5 MG TAB PO SCH (08:04)
[2019-02-28] MEDS: ALVIMOPAN 12 MG CAPSULE (ENTEREG) PO SCH ×2 (08:04→20:50)
[2019-02-28] MEDS: PANTOPRAZOLE 40MG INJ (PROTONIX) (C9113) IV SCH (08:04)
[2019-02-28] MEDS: MORPHINE 4 MG/ML 1ML VIAL/SYRINGE (J2270) IV PRN ×2 (08:05→23:56)
[2019-02-28 10:00] VITALS: BP 142/66
[2019-02-28] MEDS: diltiaZEM **CD** 180 MG CAP PO SCH (11:26)
[2019-02-28] MEDS: AMIODARONE 200 MG TAB (PACERONE) PO SCH (11:26)
[2019-02-28] MEDS: LR 1,000 ML IV SCH ×2 (11:27→22:15)
[2019-02-28 14:00] VITALS: BP 133/69
[2019-02-28 18:00] VITALS: BP 136/64
[2019-02-28 22:00] VITALS: BP 149/73
[2019-03-01 02:00] VITALS: BP 147/72
[2019-03-01 06:00] VITALS: BP 146/71
[2019-03-01] MEDS: LR 1,000 ML IV SCH (06:52)
[2019-03-01] MEDS: LEVOTHYROXINE 50MCG TABLET (0.05MG) PO SCH (06:52)
[2019-03-01 07:06] LABS: BASO % 0.2 % (0.0-1.0); EOS % 0.4 % (0.0-3.0); HEMATOCRIT 34.3 % (42.0-52.0); HEMOGLOBIN 11.6 g/dl (13.5-17.5); LYMPH # 0.5 10^3/uL (1.5-4.5); LYMPH % 8.8 % (24.0-44.0); MEAN CORPUSCULAR HEMOGLOBIN 32.2 pg (27.0-33.0); MEAN CORPUSCULAR HGB CONC 33.8 g/dl (32.0-36.5); MEAN CORPUSCULAR VOLUME 95.3 fl (80.0-96.0); MONO # 0.6 10^3/uL (0.0-0.8); MONO % 10.5 % (0.0-5.0); NEUTROPHILS # 4.5 10^3/uL (1.8-7.7); NEUTROPHILS % 79.6 % (36.0-66.0); PLATELET COUNT, AUTOMATED 224 10^3/uL (150-450); WHITE BLOOD COUNT 5.7 10^3/uL (4.0-10.0)
[2019-03-01 07:35] LABS: BLOOD UREA NITROGEN 15 MG/DL (7-18); CALCIUM LEVEL 7.6 MG/DL (8.8-10.2); CARBON DIOXIDE LEVEL 26 MEQ/L (21-32); CHLORIDE LEVEL 104 MEQ/L (98-107); CREATININE FOR GFR 0.71 MG/DL (0.70-1.30); GLOMERULAR FILTRATION RATE > 60.0 (>35); GLUCOSE, FASTING 92 MG/DL (70-100); POTASSIUM SERUM 3.4 MEQ/L (3.5-5.1); SODIUM LEVEL 139 MEQ/L (136-145)
[2019-03-01] MEDS: amLODIPine 5 MG TAB PO SCH (09:21)
[2019-03-01] MEDS: PANTOPRAZOLE 40MG INJ (PROTONIX) (C9113) IV SCH (09:21)
--- NOTE | 2019-03-01 09:21 | IPN ---
DATE: 03/01/2019 Patient seems to be doing quite well at this point, has had significant flatus overnight. No nausea or vomiting. NG tube has been putting out minimal. His urine output has been good. He has been afebrile and his white count is normal, hematocrit stable. On his physical exam lungs are clear anteriorly. Abdomen soft, nontender, nondistended. Incision is clean, dry, healing nicely without any erythema, drainage or discharge. Dressing was removed today. IMPRESSION AND PLAN: The patient had a laparoscopy with bowel resection and seems to be doing well status post bowel resection. Will DC his NG tube, will start him on a clear liquid diet and Hep-Lock his IV. Will progress his diet probably tomorrow and then probably discharge sometime over the weekend.
[2019-03-01 10:00] VITALS: BP 153/70
[2019-03-01] MEDS: AMIODARONE 200 MG TAB (PACERONE) PO SCH (12:07)
[2019-03-01] MEDS: diltiaZEM **CD** 180 MG CAP PO SCH (12:09)
[2019-03-01 14:00] VITALS: BP 145/88
[2019-03-01 18:00] VITALS: BP 134/70
[2019-03-01 22:00] VITALS: BP 144/72
[2019-03-02 02:00] VITALS: BP 138/71
[2019-03-02] MEDS: LEVOTHYROXINE 50MCG TABLET (0.05MG) PO SCH (05:39)
[2019-03-02 05:55] LABS: BASO % 0.2 % (0.0-1.0); EOS # 0.1 10^3/uL (0.0-0.50); EOS % 2.1 % (0.0-3.0); HEMATOCRIT 32.2 % (42.0-52.0); HEMOGLOBIN 10.9 g/dl (13.5-17.5); LYMPH # 0.6 10^3/uL (1.5-4.5); LYMPH % 10.2 % (24.0-44.0); MEAN CORPUSCULAR HEMOGLOBIN 31.8 pg (27.0-33.0); MEAN CORPUSCULAR HGB CONC 33.9 g/dl (32.0-36.5); MEAN CORPUSCULAR VOLUME 93.9 fl (80.0-96.0); MONO # 0.5 10^3/uL (0.0-0.8); MONO % 7.8 % (0.0-5.0); NEUTROPHILS % 79.1 % (36.0-66.0); PLATELET COUNT, AUTOMATED 234 10^3/uL (150-450); RED BLOOD COUNT 3.43 10^6/uL (4.30-6.10); WHITE BLOOD COUNT 6.3 10^3/uL (4.0-10.0)
[2019-03-02 06:00] VITALS: BP 140/69
[2019-03-02 06:23] LABS: BLOOD UREA NITROGEN 12 MG/DL (7-18); CALCIUM LEVEL 7.6 MG/DL (8.8-10.2); CARBON DIOXIDE LEVEL 25 MEQ/L (21-32); CHLORIDE LEVEL 104 MEQ/L (98-107); CREATININE FOR GFR 0.72 MG/DL (0.70-1.30); GLOMERULAR FILTRATION RATE > 60.0 (>35); GLUCOSE, FASTING 102 MG/DL (70-100); POTASSIUM SERUM 3.4 MEQ/L (3.5-5.1); SODIUM LEVEL 136 MEQ/L (136-145)
[2019-03-02] MEDS: PANTOPRAZOLE 40MG INJ (PROTONIX) (C9113) IV SCH (08:05)
[2019-03-02 08:07] VITALS: BP 147/74
[2019-03-02] MEDS: amLODIPine 5 MG TAB PO SCH (08:07)
[2019-03-02 10:00] VITALS: BP 137/62
--- NOTE | 2019-03-12 15:51 | ROOPDOC ---
[facility] Report Of Operation Report of Operation DATE OF PROCEDURE: 02/27/19 PREPROCEDURE DIAGNOSES: Small bowel obstruction due to adhesions. POSTPROCEDURE DIAGNOSES: Same. PROCEDURE: Laparoscopic lysis of adhesion, release of bowel obstruction, small bowel resection via a mini laparotomy through an incisional hernia at the left of the midline above the umbilicus with subsequent repair of the hernia primarily with anastomosis. SURGEON: Jarvis Gale MD SENIOR FRONT END DEVELOPER: Misa Mccarthy, KWASI Mccarthy assisted me by driving the laparoscopic camera for adequate visualization as well as help in retraction of bowels and during the bowel resection and anastomosis. ANESTHESIA: General anesthesia. ESTIMATED BLOOD LOSS: Approximately 50 mL. COMPLICATIONS: None. REMARKS: Urine output 200 ML. SPECIMENS: small bowel roughly 12-15 cms in length. DESCRIPTION OF PROCEDURE: Patient was given a dose of Unasyn 3 g IV for prophylactic antibiotic. He is brought to the operating room, placed supine on the table. Sequential Compression boots placed on both lower extremities for DVT prophylaxis. He is a nasogastric tube in place. General endotracheal anesthesia started. A Sr catheter placed for urine output monitoring. His abdomen was then prepped and draped widely in usual sterile fashion.We paused for a surgical timeout using both pre-incision safety checklist to verify correct patient, procedure site and additional clinical information prior to beginning the procedure I began with the left upper quadrant incision were I placed a Veress needle in a controlled fashion. Proper placement confirmed with saline drop technique. CO2 insufflation started to pressure of 15 mmHg. The abdomen seems to inflate uniformly. Using the same incision I inserted a 5 mm optical blade less trocar under direct vision of the laparoscope. I inspected for injury and the insertion site and did not notice any. On entry into the abdomen a clinically noted multiple dilated loops of bowel in the mid abdominal area. He had multiple loops of distended loops of bowel adhered to the anterior abdominal wall. This seems to be widely and densely adhered to a portion of a mesh that was placed in an intraperitoneal onlay fashion. I think I could make at least 2 distinct pieces of mesh around the umbilicus and at the supraumbilical area. A central line camera towards the right upper quadrant I could not is a piece of bowel that was adhered to a lateral edge of the mesh which appears to be twisted. The bowels over at the right lower quadrant area looks decompressed. I repositioned him in a slight Trendelenburg position tilted towards his right side to create space on the left anterior abdominal wall. Under direct visualization 5 mm trocar was placed to be my working port. Using both the Harmonic scalpel when working with omental tissues as well as laparoscopic romelia when working close to bowels a carefully lysed the adhered loops of bowel over the anterior abdominal wall at the midline. I was able to clear to bowels up to drop it away from the midline anterior abdominal wall at the level above the umbilicus where it could place another 5 mm trocar. A fourth working trocar over the right upper quadrant was also placed. I moved my camera over to the port above the umbilicus for better visualization of the right lower quadrant bowels. I was able to locate the decompressed loops of bowel and ran this to to wards the cecum. I then ran it back until I reached that previously noted area of bowels were there is a twist. I then worked on taking this down with laparoscopic romelia. After bringing down a tried to untwist it but there seems to be a persistent area of stricture. There was some thickening as well as chronic appearing bruising secondary to the twist. There was no perforation or obvious ischemia. I continued around the bowel while lysing the adhesions in between the bowels from that area towards the clearly moderately distended loops of bowel at the mid abdomen. The rest of the bowels save for some interbowel adhesions seems to be free. The interbowel adhesions that does not seem to be causing any blockage was left alone. I did not feel or see any fixed bowels in the pelvis. At this point I chose an area on the abdominal wall where I would make an incision for minilaparotomy to exteriorize this continued stricture of the bowel with intention to resect that portion. He has a roughly 3 cm weekend hernia def ect to the left of the umbilicus and I used this as my entry. The abdomen was deflated and created a transverse incision roughly about 4-5 cm and deepened this through the subcutaneous tissue and opened up the hernia sac. The hernia sac was divided at the fascial edges. I then delivered the loop of bowel through this incision protecting the incision in the skin around it with towels. I inspected the area of stricturing in the seems to be fixed there was a clear area of the imbrication where the bowel is distended and after this stricture it was decompressed. Thus I decided to resect this portion. I aligned the bowel for resection and the [id number] anastomosis. Stay sutures using 3-0 silk was placed. I made an enterotomy in both sites be on the area of the stricture and using a 75 mm stapler with a blue load a [id number] anastomosis was fashioned between the 2 loops of bowel. I then included the enterotomy towards the portion of the bowel that will be excised and fired another load of the linear stapler t ransversely to both resect the bowel and create a transverse closure of our enterotomy. The attached mesentery was divided with the Harmonic scalpel. Small bowel specimen was taken off the field. I examined the anastomosis and this seems to be adequate. I reinforced the staple lines at the crotch of the anastomosis and where the staple lines meet with 3-0 silk. I closed the mesente leora defect a running stitch of 2-0 Vicryl. This was then replaced back in the abdomen. The hernia defect was then repaired using 1 PDS in a mattress fashion to try to secure a primary closure of the defect. After doing so I resumed the laparoscopy. I examined the enteric anastomosis intra-abdominally and this seems to aligned finding. I could see the previously decompressed bowels starting to fill up with good peristalsis beyond the area of the anastomosis. At this point a check for any inadvertent injury or any bleeding and when satisfied the laparoscopy was terminated. The abdomen was deflated, all ports were removed. The skin incision over the port sites and minilaparotomy was closed with gregg. Sterile gauze dressings were then used to cover the incision. Patient was promptly awakened, extubated. Time of the extubation his nasogastric tube was removed. His Sr catheter remain in place. He is brought to the recovery room in stable condition. Counts of sponges and instruments were verified correct. JARVIS GALE MD Mar 12, 2019 15:51
--- NOTE | 2019-03-12 16:01 | DS.PDOC ---
Discharge Summary General Date of Admission Feb 23, 2019 at 12:33 Date of Discharge 03/02/2019 Attending Physician: Tobi Moore Specialist/Consultants Involve: MARTY GALE MD Discharge Summary PROCEDURES PERFORMED DURING STAY: Diagnostic laparoscopy, laparoscopic lysis of adhesion and release of obstruction, small bowel resection with anastomosis. ADMITTING DIAGNOSES: 1. Small bowel obstruction 2. History of atrial fibrillation on anticoagulation DISCHARGE DIAGNOSES: 1. Small bowel obstruction resolved 2. History of atrial fibrillation on anticoagulation COMPLICATIONS/CHIEF COMPLAINT: Small Bowel Obstruction. HISTORY OF PRESENT ILLNESS: [ The patient is a pleasant 84-year-old man who presented to the emergency department at approximately 5 o'clock in the morning on the 23 of February complaining of abdominal pain. He reported that he had been awakened at about 2 o'clock in the morning by severe pain. It was difficult to localize and fairly diffuse. He had some nausea but reported some dry heaves without any significant emesis. In the emergency department he was found to have some abdominal discomfort. He received analgesics as needed. He was noted to have a small hernia bulge above the level of the umbilicus. A CT scan of the abdomen and pelvis was obtained. This revealed some air and fluid-filled dilated proximal small bowel with some distal decompressed small bowel and a decompressed colon. The radiologist felt the findings were consistent with a small bowel obstruction. The patient has had a previous appendectomy several years ago. He has had several operations for an umbilical or incisional hernia along the midline. He reports having had an operation back in 2013 for a bowel obstruction. This was done at . I was consulted and the patient is now admitted for management of his apparent obstruction. HOSPITAL COURSE: Patient was admitted for bowel obstruction under Dr. Moore. A nasogastric tube was placed in the emergency room to decompress his stomach. He was given IV fluid hydration. His Xarelto was held for possibility of needing surgery. Unfortunately he did not resolve his obstruction despite adequate time to rule out the bowels to decompress. He continues not to pass any flatus. Dr. Moore had to take time off or continue medication. I took over the patient's care and he was brought to the operating room for diagnostic laparoscopy and attempt to resolve the obstruction. He successfully underwent laparoscopic lysis of adhesion. Via minilaparotomy small portion of the portion of the bowel which is a fixed stricture was excised and anastomosis performed. He did well intraoper atively as well as perioperatively. He started passing some flatus at postop day 1 on postop day 2 started having bowel movements. His diet was advanced as he is able to tolerate oral intake. As he is able to tolerate diet he was subsequently discharged home. His home medications including that of his Xarelto was resumed on discharge. DISCHARGE MEDICATIONS: Please see below. ALLERGIES: Please see below. PHYSICAL EXAMINATION ON DISCHARGE: VITAL SIGNS: Please see below. GENERAL: Comfortable CARDIOVASCULAR EXAMINATION: Regular heart rate and rhythm, slight intermittent drops. No murmurs RESPIRATORY EXAMINATION: Clear breath sounds auscultation bilaterally, good respiratory motion ABDOMINAL EXAMINATION: Slightly rounded, soft, minimally distended. Active bowel sounds. Laparoscopic port sites and minilaparotomy sites with gregg intact, no drainage. Nontender on palpation EXTREMITIES: No lower extremity edema SKIN: No skin rashes. Incisions as described above NEUROLOGICAL EXAMINATION: Awake, alert, oriented LABORATORY DATA: Please see below. IMAGING: CT scan abdomen and pelvis PROGNOSIS: Good ACTIVITY: Light activity 2 weeks. DIET: As tolerated DISCHARGE PLAN: Patient is discharged home in his medications were all resumed including Xarelto DISPOSITION: 01 Home, Self-Care. DISCHARGE INSTRUCTIONS: 1. As above 2. Follow-up with Dr. Gale in 2 weeks for staple removal and symptom check ITEMS TO FOLLOWUP ON ON OUTPATIENT: 1. And staple removal 2. Pathology from the bowel resection. DISCHARGE CONDITION: Stable. TIME SPENT ON DISCHARGE: Greater than 30 minutes. Discharge Medications Scheduled Amiodarone Hcl (Pacerone) 200 Mg Tablet, 200 MG PO DAILY, (Reported) TAKES @ NOON Amlodipine Besylate (Amlodipine Besylate) 5 Mg Tablet, 5 MG PO DAILY, (Reported) Cyanocobalamin (Vitamin B-12) (Vitamin B-12) 1,000 Mcg Tab, 1,000 MCG PO DAILY, (Reported) Diltiazem HCl (Dilt-Xr) 180 Mg Cap.er.deg, 180 MG PO DAILY, (Reported) TAKES @ NOON Levothyroxine Sodium (Levothyroxine Sodium) 50 Mcg Tab, 50 MCG PO DAILY, (Reported) Losartan/Hydrochlorothiazide (Losartan-Hctz 50-12.5 mg Tab) 1 Tab Tab, 1 TAB PO DAILY, (Reported) Pantoprazole Sodium (Protonix) 40 Mg Tablet.dr, 40 MG PO DAILY, (Reported) Rivaroxaban (Xarelto) 20 Mg Tablet, 20 MG PO DAILY, (Reported) TAKES @ NOON Allergies Coded Allergies: No Known Allergies (Unverified , 10/11/18) MARTY GALE MD Mar 12, 2019 16:01
== END 2019-03-02 11:26 | disposition home or self-care (01) | DRG 331 ==
LOC: M ED 05:09 → M ED INP 12:33 → M MSPAV 14:02
PROVIDERS: ADMIT Surgery; ATTEND Surgery
PROC: 0DNB4ZZ Release Ileum, Percutaneous Endoscopic Approach (ICD-10-PCS; 2019-02-27)
PROC: 0DB80ZZ Excision of Small Intestine, Open Approach (ICD-10-PCS; principal; 2019-02-27 16:00)
DX: K56.52 Intestinal adhesions [bands] with complete obstruction (principal); E03.9 Hypothyroidism, unspecified; I48.91 Unspecified atrial fibrillation; E78.5 Hyperlipidemia, unspecified; I10 Essential (primary) hypertension; Z92.3 Personal history of irradiation; K42.9 Umbilical hernia without obstruction or gangrene; Z90.49 Acquired absence of other specified parts of digestive tract; Z87.891 Personal history of nicotine dependence; Z79.01 Long term (current) use of anticoagulants; Z79.899 Other long term (current) drug therapy; Z85.46 Personal history of malignant neoplasm of prostate

== ENCOUNTER → 2024-03-21 | Outpatient (CLI) | payer MEDICARE ==
[~2024-03-21] MED LIST changes: +ALLO300T2 PO; -AMLO10TA5 PO; +AMLO1TAB24 PO; +AMLO1TAB25 PO; +DILT180C28 PO; +LEVO100T5 PO; +ONDA-84 PO; +PACE200T PO; +PRED50TA PO; +PROT1TAB2 PO; +XARE20TA PO
== END ==
LOC: M ONCR 14:43
PROVIDERS: ATTEND General Practice
DX: R22.1 Localized swelling, mass and lump, neck (principal); R22.32 Localized swelling, mass and lump, left upper limb; Z79.01 Long term (current) use of anticoagulants; Z79.899 Other long term (current) drug therapy; Z85.46 Personal history of malignant neoplasm of prostate; Z85.828 Personal history of other malignant neoplasm of skin; Z92.3 Personal history of irradiation
CPT/HCPCS: 10005; 31575; 88305; G0463

== ENCOUNTER → 2024-04-08 | Outpatient (CLI) | payer MEDICARE ==
[~2024-04-08] MED LIST changes: -ALLO300T2 PO; -LEVO100T5 PO; -ONDA-84 PO; -PRED50TA PO
== END ==
LOC: M PLARAD 09:19
PROVIDERS: ATTEND General Practice
DX: C85.11 Unspecified B-cell lymphoma, lymph nodes of head, face, and neck (principal)
CPT/HCPCS: 78815; A9552

== ENCOUNTER → 2024-04-11 | Outpatient (CLI) | payer MEDICARE ==
[~2024-04-11] MED LIST changes: +ALLO300T2 PO; +LEVO100T5 PO; +METO5TAB2 PO; +ONDA-84 PO; +PRED50TA PO
== END ==
LOC: M ONCR 13:51
PROVIDERS: ATTEND General Practice
DX: C85.11 Unspecified B-cell lymphoma, lymph nodes of head, face, and neck (principal); Z85.46 Personal history of malignant neoplasm of prostate; Z79.01 Long term (current) use of anticoagulants; Z79.890 Hormone replacement therapy; Z79.899 Other long term (current) drug therapy; Z92.3 Personal history of irradiation

== ENCOUNTER → 2024-04-15 | Outpatient (CLI) | payer MEDICARE ==
[~2024-04-15] MED LIST changes: -LEVO100T5 PO; +LIDOCAINE 1% MDV 20ML VIAL As Ordered ONE; +LIDOCAINE W/EPINEPHRINE 1% 20ML VIAL As Ordered ONE; -METO5TAB2 PO; +ceFAZolin 2 GM/D5W 50 ML IV BAG As Ordered ONE; +fentaNYL 100 MCG/2 ML INJECTION As Ordered ONE
[2024-04-15 10:35] VITALS: TEMP 97.5
[2024-04-15] MEDS: NS 1,000 ML IV SCH (11:07)
[2024-04-15] MEDS: ceFAZolin SOD 2 GM in IV 1 EA IV ONE (11:07)
[2024-04-15 12:15] VITALS: BP 128/64; O2SAT 98
== END ==
LOC: M IRPRO 10:17
PROVIDERS: ATTEND Internal Medicine Hematology & Oncology
DX: C85.90 Non-Hodgkin lymphoma, unspecified, unspecified site (principal)
CPT/HCPCS: 36561; C1769; J0690; J3010

== ENCOUNTER → 2024-04-16 | Outpatient (CLI) | payer MEDICARE ==
[~2024-04-16] MED LIST changes: +LEVO100T5 PO; -LIDOCAINE 1% MDV 20ML VIAL As Ordered ONE; -LIDOCAINE W/EPINEPHRINE 1% 20ML VIAL As Ordered ONE; -ceFAZolin 2 GM/D5W 50 ML IV BAG As Ordered ONE; -fentaNYL 100 MCG/2 ML INJECTION As Ordered ONE
== END ==
LOC: M CARPUL 11:18
PROVIDERS: ATTEND Internal Medicine Hematology & Oncology
DX: C85.90 Non-Hodgkin lymphoma, unspecified, unspecified site (principal); I08.8 Other rheumatic multiple valve diseases

== ENCOUNTER → 2024-05-20 | Outpatient (CLI) | payer MEDICARE ==
[~2024-05-20] MED LIST changes: +METO5TAB2 PO
== END ==
LOC: M ONCR 09:06
PROVIDERS: ATTEND General Practice
DX: C85.11 Unspecified B-cell lymphoma, lymph nodes of head, face, and neck (principal); C61 Malignant neoplasm of prostate; Z92.3 Personal history of irradiation; Z92.21 Personal history of antineoplastic chemotherapy; Z72.89 Other problems related to lifestyle; Z79.52 Long term (current) use of systemic steroids; Z79.890 Hormone replacement therapy; Z79.01 Long term (current) use of anticoagulants; Z79.899 Other long term (current) drug therapy; Z71.2 Person consulting for explanation of examination or test findings